=== PATIENT | male | born 1985 | race Caucasian/White ===

== ENCOUNTER 2022-10-15 07:12 | Observation (INO) | payer OTHER, SELFPAY ==
--- NOTE | 2022-10-12 13:14 | RAD_ITS ---
INDICATION: PREOP EXAMINATION/TECHNIQUE: X-RAY - XR Chest 2 Views COMPARISON: None. FINDINGS: LINES/DEVICES: None. LUNGS: No consolidation, edema or effusion. No pneumothorax. MEDIASTINUM AND CARDIOVASCULAR STRUCTURES: Cardiac silhouette not enlarged. Central airways and mediastinal contour are unremarkable. BONES AND SOFT TISSUES: Unremarkable. RAD/Chest PA and Lateral IMPRESSION: No acute cardiopulmonary disease. Electronically Signed: Jean Perkins MD at 13:25 EDT Reading Location ID and State: [id number] / Unknown , Service support ,
[2022-10-12 13:24] LABS: Absolute Lymphocyte Count 1.95 X10^3/uL (0.83-4.51); Absolute Neutrophil Count 5.2 X10^3/uL (2.0-7.7); Basophil# 0.04 X10^3/uL; Basophil% 0.5 % (0-1); Eosinophil# 0.15 X10^3/uL; Eosinophils% 1.9 % (0-5); Hematocrit 49.3 % (40-54); Hemoglobin 16.6 g/dL (13.0-16.5); Lymphocyte # 1.95 X10^3/ul (0.83-4.51); Mean Corp Hgb Conc 33.7 g/dL (32-36); Mean Corpuscular Hgb 32.2 pg (27.0-32.0); Mean Corpuscular Volume 95.7 fL (80-94); Mean Platelet Vol. 9.5 fl (6.2-12.0); Monocyte# 0.47 X10^3/uL; NRBC Flagged by Analyzer 0 % (0-5); Neutrophil # 5.17 X10^3/uL (2.7-7.7); Neutrophil % 66.3 % (47-70); Platelet Count 211 K/mm3 (150-450); RBC Distribution Width CV 13.3 % (11.6-14.6); RBC Distribution Width SD 47.4 fl (35.1-43.9); Red Blood Count 5.15 M/mm3 (4.6-6.2); White Blood Count 7.8 K/mm3 (4.4-11.0)
[2022-10-12 13:33] LABS: Prothrombin Time (Protime)PT. 13.4 SECONDS (11.7-14.9)
[2022-10-12 13:34] LABS: Partial Thromboplast Time 28.7 Seconds (24.1-36.2)
[2022-10-12 13:42] LABS: Anion Gap 4 (5-15); BUN 19 mg/dL (7-18); BUN/Creat Ratio 14.6 RATIO (10-20); Calcium,Total 9.1 mg/dL (8.5-10.1); Chloride 107 mmol/L (98-107); EST Glomerular Filtration Rate 65 mL/min (>60); Est Glom Filt Rate - Afr Amer 79 mL/min (>60); Glucose 93 mg/dL (74-106); Potassium 3.9 mmol/L (3.5-5.1); Sodium Level 138 mmol/L (136-145)
[2022-10-15] VITALS (16 sets, daily range): BP systolic 110–132; BP diastolic 69–82; PULSE 49–78; RESP 16–17; TEMP 36.2–36.8; O2SAT 97–100; BMI 27.4
[2022-10-15] MEDS: Lactated Ringers 1,000 ML 15 ML IV (06:47)
--- NOTE | 2022-10-15 07:09 | OP.PCM_ITS ---
Report of Operation Date of Procedure: 10/15/22 Description of Surgical Findings:: Preop diagnosis: 1. Lumbar stenosis, L5-S1 with spondylosis 2. Lumbar degenerative disc disease L5-S1 Postop diagnosis: 1. Lumbar stenosis, L5-S1 with spondylosis 2. Lumbar degenerative disc disease L5-S1 Procedures performed: 1. L5-S1 posterior lumbar interbody fusion 2. Insertion of intervertebral biomechanical device x1 3. Structural allograft for spinal fusion 4. L5 bilateral laminectomies, foraminotomies, facetectomies, decompression of bilateral nerve roots 5. S1 bilateral laminectomies, foraminotomies, facetectomies, decompression of bilateral nerve roots 6. L5-S1 posterolateral fusion 7. Pedicle screw fixation 8. Local autograft for spinal fusion 9. Neuro monitoring bilateral upper and bilateral lower extremities Statement of medical necessity: The patient is a 37-year-old male with intractable back and leg pain. Image studies confirm the above diagnoses. They have failed conservative treatments to include medications physical therapy and injections and have opted for operative intervention understanding the risk to include but not limited to infection, bleeding, damage to nerves arteries and veins, possibility of spinal fluid leak, nonunion, hardware failure, continued pain, need for further surgery, deep vein thrombosis, pulmonary embolism, heart attack, risk of stroke or . Description of the procedure: The patient was identified in the preoperative holding area. There they received preoperative IV antibiotics and was then transferred to the operative suite. Once in the operative suite after general endotracheal anesthesia was established, the patient was positioned prone on the Manuel operating table. All bony prominences were padded accordingly. The lumbar spine was prepped and draped in a standard fashion. Bear hugger's were not turned on until the drapes were placed and sealed with Ioban. A midline incision was made and taken down to the fascia. The fascia was divided and subperiosteal dissection was taken down to the level of the transverse processes and sacral ala of L5 and S1 bilaterally. Deep retractors were placed. A bone scalpel was used to make cuts in the lamina and then a series of rongeurs and Kerrisons were used removing the spinous process and lamina of L5. Then facetectomies of greater than 50% were performed as well as foraminotomies decompressing the bilateral nerve roots. Given the severity of the stenosis I needed to perform wide bilateral laminectomies and near complete facetectomies in order to decompress the neural elements. Disc created instability necessitating the fusion. I then proceeded with interbody fusion. The nerve roots and dura were identified and retracted medially. A knife was utilized to perform an annulotomy at L5-S1. Endplate elevators, curettes, and pituitaries were utilized to remove disc material. Endplates were prepared with a rasp. An appropriate sized intervertebral peek cage device measuring 10 mm was packed with structural allograft and impacted into position completing the posterior lumbar interbody fusion at the L5-S1 level. I then proceeded with pedicle screw fixation. Starting points were found at the junction of the superior articular process and transverse processes and sacral ala. A power bur was used for the starting points. Pedicle probes were placed bilaterally and then 6.5 x 55 mm screws were placed bilaterally at L5 and 6.5 x 45 mm screws were placed gregoria aterally at S1. The screws were tested with intraoperative neurophysiologic monitoring and tested within normal limits. Connector rods were applied and secured with set screws. I then proceeded with the posterolateral fusion. This was accomplished by decorticating the transverse processes bilaterally at L5 and the sacral ala bilaterally at S1. This decorticated bone was then bridged with local autograft from the decompression as well as morselized cancellous allograft completing the posterolateral fusion of the L5-S1 level. The incision was thoroughly irrigated. Tisseel was placed over the dura as a hemostatic agent. A deep drain was placed. The fascia was closed with #1 Vicryl, subcutaneous with 2-0 Vicryl and skin with 2-0 nylon. A sterile dressing was applied with 4 x 4's ABD and tape. Sponge instrument and needle counts were correct at the end of the case. Neurophysiologic monitoring was maintained at baseline throughout the duration of the case. The patient was extubated and taken to the PACU without incident Surgeon: Hubert Miramontes Type of Anesthesia: General Drains: Hemovac Estimated Blood Loss (mL): 500 cc Fluids Replaced: 2700 cc Grafts/Implants Used: Unified spine Complications None Admit VTE Documentation VTE Present on Admission: No
--- NOTE | 2022-10-15 07:09 | PCM.PN.ORT ---
Subjective Subjective Seen and examined postop. The patient is resting comfortably. His pain is controlled. Patient is complaining of some burning in the left lower extremity below the knee. No other numbness tingling or weakness Objective Data Objective Data Vital Signs: Vital Signs Temp Pulse Resp BP Pulse Ox O2 Del Method 97.2 F L 53 L 16 118/79 100 Room Air 10/15/22 06:41 10/15/22 06:41 10/15/22 06:41 10/15/22 06:41 10/15/22 06:41 10/15/22 06:41 Oxygen Delivery Method Room Air Weight: 207 lb 14.334 oz Body Mass Index (BMI) 27.4 Lab / Micro Data 10/12/22 13:02 10/12/22 13:02 Physical Exam Const alert, oriented x3 and no apparent distress General Appearance: cooperative, comfortable and well kempt HEENT normocephalic and head/scalp atraumatic Eyes EOMs intact bilaterally and conjunctivae normal Neck full ROM General: normal visual inspection Chest inspection of chest normal and palpation of chest normal Resp normal respiratory effort and normal air movement Cardio regular rate, regular rhythm and peripheral pulses 2+ throughout GI soft to palpation, non-tender and non-distended Back/Spine Back/Spine Narrative: Dressing clean dry and intact. Drain in place and functioning with small amount of serosanguineous fluid in Cervical Spine: cervical ROM normal Thoracic Spine / Upper Back: normal to inspection Lumbar Spine / Lower Back: normal to inspection Extremity normal to inspection, full ROM, normal capillary refill, no clubbing, cyanosis or edema and no calf tenderness Skin no rashes or lesions noted General Skin Exam: no breakdown Neuro oriented x3, CN's II-XII intact bilaterally, moves all extremities, no focal motor deficits, no sensory deficits noted and deep tendon reflexes 2+ bilaterally Motor Exam: strength 5/5 throughout and muscle tone normal throughout Assessment & Plan Assessment/Plan (1) Lumbar stenosis: PLAN: Okay to admit to floor See orders Discharge planning, likely home tomorrow
--- NOTE | 2022-10-15 07:09 | PCM.DC.SUM ---
Providers Date of Admission: 10/15/22 Primary Care Physician: MAKSIM Cooper Reason For Visit: 360 POST LUM INTERBODY FUSION Medications at Discharge Home Medications hydrocodone-acetaminophen 5-325mg 5mg-325mg 1 tab PO Q6H 7 days #28 tabs 10/15/22 Hospital Course Operations - (L5-S1 posterior lumbar interbody fusion, decompression, posterior spinal fusion with instrumentation, use of allograft) Summary of Care Provided Minutes Spent on Discharge: 15 Hospital Course: The patient is a 37-year-old male who underwent L5-S1 fusion on 10/15/2022. He was subsequently admitted. The hospitalist was consulted for medical management. The patient progressed well. His pain was controlled and he was mobilizing well. His drain was pulled on postoperative day 1. No significant medical issues were reported. He was subsequently discharged home on 10/16/2022 to follow-up with Dr. Miramontes in 3 weeks Physical Exam Const alert, oriented x3 and no apparent distress General Appearance: cooperative, comfortable and well kempt HEENT normocephalic and head/scalp atraumatic Head and Scalp: normal to inspection Eyes EOMs intact bilaterally and conjunctivae normal Neck full ROM General: normal visual inspection Chest inspection of chest normal and palpation of chest normal Resp normal respiratory effort and normal air movement Effort and Inspection: able to speak in complete sentences Cardio regular rate and peripheral pulses 2+ throughout GI soft to palpation, non-tender and non-distended Back/Spine Back/Spine Narrative: Dressing clean dry and intact. Incision well approximated with interrupted sutures in place. Drain pulled Cervical Spine: cervical ROM normal Thoracic Spine / Upper Back: normal to inspection Lumbar Spine / Lower Back: normal to inspection Extremity normal to inspection, full ROM, normal capillary refill, no clubbing, cyanosis or edema and no calf tenderness Skin no rashes or lesions noted General Skin Exam: no breakdown Neuro oriented x3, CN's II-XII intact bilaterally, moves all extremities, no focal motor deficits and deep tendon reflexes 2+ bilaterally Neuro Narrative: Patient describes mild decrease sensation in the left foot globally. Otherwise sensation intact grossly Motor Exam: strength 5/5 throughout and muscle tone normal throughout Weight / BMI Weight Weight: 207 lb 14.334 oz Body Mass Index (BMI) 27.4 ABG / Lab / Microbiology Data 10/12/22 13:02 10/12/22 13:02 D/C Instructions Discharge Diet: No restrictions Weight Bearing Status: Weight bearing as tolerated Additional Activity Instructions: No repetitive bending twisting or lifting greater than 5 pounds. Wear back brace at all times Call your doctor if your incision/area has: Continuous Slow Oozing, Sudden Increased Bleeding, Increased Pain/ Swelling, Increased Redness, Foul Smelling Discharge and Swelling at the incision site Call your doctor if you observe: Fever of 101 or Higher, Coldness, Increased Pain, Numbness or Tingling, Change in Color, Inability to urinate, Inability to have a bowel movement, Using more than 1 pad per hour, Shortness of breath, Dizziness, Fainting spells, Swelling in the ankles, Chest pain, Prolonged hiccupping, Increased palpitations (irregular heartbeat), Calf discomfort and Uncontrolled pain Cleanse incision/area with: Do not get Incision Wet and Keep Dressing Clean & Dry Additional Dressing/Incision Instructions: Change dressing daily with iodine gauze and tape. Use waterproof dressing for shower Please Follow Up With: Hubert Miramontes DO When: 3 weeks Meaningful Use Info Meaningful Use Diagnoses (Choose all that apply): None applicable Discharge Plan Admission Admit Date/Time: 10/15/22 07:12 Attending Provider: Hubert Miramontes Primary Care Provider: Madeline Saravia Consulting Providers: Quita Mitchell; Dony Owens; Jaycee Winchester; Jaycee Valentin; Shea Aguilar; June Lazo; Claus Monteiro; Narciso Parks; Edwar De La O; Mylene Haque; Gomez Walters; Arturo Cherry; Conner Tolbert; No Barney; Bandar Odom; Adali Calvillo; Marquis Culver; Nawaf Coronado; Gaob Vazquez; Dannie Pedro; Marbella Humphrey NP; Rafael Aceves; Isa Kraus Instructions Additional Instructions / Restrictions: 1. During your procedure, you received sedation through your IV. Please follow these instructions for the next 24 hours: Do not drive a motor vehicle, do not drink any alcoholic beverages, and do not sign any legal documents or make personal or business decisions. A responsible adult should stay with you at least 6 hours after the procedure. 2. Keep your surgical site/incision clean and the dressing dry and intact. You may use an ice pack at the surgical site to reduce any swelling or discomfort. 3. Monitor the incision site for any signs or symptoms of infection. Watch for redness, excessive swelling or drainage, or continued pain at the incision site after 3 days. Contact your physician immediately for a fever, chills or a temperature of 101.5? F or greater. 4. Take your medication exactly as prescribed by your physician. Do not attempt to wean yourself off any of your medications even though your pain is improving. This process needs to be carefully monitored by your doctor. Take any antibiotics prescribed exactly as directed and until they are gone. 5. Avoid stretching, bending, pulling, twisting or any sudden movements. Do not bend or twist at the waist. Wear back brace at all times 6. No lifting greater than 5 pounds. 7. Do not operate a motor vehicle, equipment or a power tool while taking pain medication 8. Do not have any manipulation done by a chiropractor or any other physician without first consulting with the surgeon 9. Please contact our office if you are even scheduled for a CT scan or an MRI. 10. Please call us if you have any questions, problems or concerns. Discharge Orders/Prescriptions Prescriptions: New hydrocodone-acetaminophen 5-325 mg tablet 1 tab PO Q6H 7 Days Qty: 28 0RF Discontinued naproxen sodium [Aleve] 220 mg capsule 220 mg PO BID PRN (Reason: pain) Other Ambulatory Orders: 12 Lead EKG (Routine) Timeframe: 20221012 Facility: [facility] - Location: Cardiovascular Services Ordered By: Dr. Hubert Miramontes Referrals / Follow Up: Hubert Miramontes DO [Med Staff - Active Staff] - Oliver Velazquez MD [Non-Staff] - Disposition Disposition (needs filled in before D/C Order can be placed): Home, Self Care
--- NOTE | 2022-10-15 07:35 | RAD_ITS ---
STUDY: X-RAY - LUMBAR SPINE REASON FOR EXAM: Male, 37 years old. Intraoperative digital documentation views. TECHNIQUE: 5 intraoperative digital documentation views of the lumbar spine were obtained. COMPARISON: None FINDINGS: 5 intraoperative digital documentation views show posterior fusion with intervertebral disc prosthesis at L5-S1. RAD/Spine 1 View Any Level IMPRESSION: Intraoperative digital documentation views. Electronically Signed: Tyron Figueroa MD at 15:54 EDT ,
[2022-10-15] MEDS: Cefazolin 2 GM in 0.9% Normal Saline 100 ML IV (07:45)
[2022-10-15] MEDS: Heparin 10,000 UNITS/10 ML Vial 10000 UNITS (08:32)
[2022-10-15] MEDS: Bupivacaine 0.25% 30 ML Vial (11:56)
--- NOTE | 2022-10-15 14:39 | SUR.PHASEI ---
Pt c/o feeling like lt foot is on fire intense burning, pedal pulses +2 foot is warm pink cap refill brisk <[address] Miramontes to inform and new order received to give 100mg Gabapentin TID start now and call him with report of effects once given. Pt made aware of New Order, called pharmacy to have med sent to PACU for administration.
[2022-10-15] MEDS: Gabapentin 100 MG Capsule PO (14:45)
[2022-10-15] MEDS: Lactated Ringers 1,000 ML 100 ML IV (14:45)
[2022-10-15] MEDS: Acetaminophen 500 MG Tablet 1000 MG PO ×2 (16:12→22:49)
[2022-10-15] MEDS: Cefazolin 1 GM/50 ML BAG IV ×2 (16:12→22:50)
--- NOTE | 2022-10-15 17:22 | PCM.CONS.GEN ---
Assessment & Plan Assessment/Plan (1) Lumbar stenosis: PLAN: Plan Assessment and plan 1. Lumbar stenosis status post a laminectomy on lumbar fusion. Postoperative pain management and DVT prophylaxis per primary team. No acute or chronic medical issues. Hospital medicine service will see again tomorrow and if stable will sign off. HPI Consult Data Date of Consult: 10/15/22 HPI Narrative HPI Narrative: MANUEL CHAMPAGNE, is a 37 M with degenerative joint disease of the lumbosacral spine with canal stenosis and who today underwent laminectomy and L5-S1 fusion. Hospital medicine consulted for postoperative medical management. Patient denies any chronic medical illnesses. Denies any chest pain or shortness of breath at this time. Denies any nausea vomiting. Pain is well controlled. [facility] Medical History Alcohol use Back pain Chewing tobacco nicotine dependence History of pain when walking History of steroid therapy Home Medications hydrocodone-acetaminophen 5-325mg 5mg-325mg 1 tab PO Q6H 7 days #28 tabs 10/15/22 [Rx Last Taken Unknown] Allergy/AdvReac Type Severity Reaction Status Date / Time No Known Allergies Allergy Verified 10/15/22 06:40 Surgical History Hx of microdiscectomy Social History Smoking Status: Current every day smoker tobacco type: smokeless tobacco ROS ROS Narrative Denies any chest pain or shortness of breath. All other systems reviewed and essentially negative or as above in the body of the history. Physical Exam Narrative General exam. Young man, not in any overt distress, well built. HEENT. Oral mucosa moist, no pallor or jaundice Neck. Neck is supple Lungs. Clear to auscultation Heart. First and second heart sounds heard and no murmurs Abdomen. Moves with respiration Extremities. No pedal edema MEAT CARVER. Conscious alert and oriented x3. Medical Records Data Attestation: I reviewed the patient's medical records Lab / Micro Data Attestation: I reviewed the patient's lab results. 10/12/22 13:02 10/12/22 13:02 Radiology Impression Spine X-Ray 10/15/22 07:35 IMPRESSION: Intraoperative digital documentation views. Electronically Signed: Tyron Figueroa MD at 15:54 EDT , Charges/Coding Visit Charges Office Visits / Consults: [id number] IP Consult L3
[2022-10-15] MEDS: Ensure Surgery 237 ML LIQUID PO (18:07)
[2022-10-15] MEDS: oxyCODONE 5 MG Tablet PO (18:19)
[2022-10-16] MEDS: Acetaminophen 500 MG Tablet 1000 MG PO (05:47)
[2022-10-16 08:00] VITALS: BP 119/61; PULSE 63; RESP 16; TEMP 36.8; O2SAT 100
[2022-10-16] MEDS: Ensure Surgery 237 ML LIQUID PO (08:14)
[2022-10-16] MEDS: Gabapentin 100 MG Capsule PO (08:14)
--- NOTE | 2022-10-16 09:40 | PHA.DC_ITS ---
Pharmacy [facility] Service has performed discharge medication reconciliation and counseling for this patient. 1. NORCO 5/325MG 1T PO Q6H The patient's discharge medication list was reviewed for discrepancies and discrepancies were resolved. The patient was counseled on the following discharge medications and changes in medications for homegoing were reviewed. The Reason for Use, instructions for use, and potential side effects were reviewed for all new medications. The patient's questions regarding all of their medications were answered. The patient was able to verbally demonstrate an understanding of their discharge medications. Patient counseled by pharmacy picking [employer]. Medications at Discharge Home Medications hydrocodone-acetaminophen 5-325mg 5mg-325mg 1 tab PO Q6H 7 days #28 tabs 10/15/22
--- NOTE | 2022-10-16 09:48 | CASEMGMT ---
Addendum entered by Norma Saravia 10/16/22 10:12: Received rx for FWW. Sent referral to [employer] via [facility]. Provided pt with walker and pt signed consignment form, uploaded to [employer] as well. Pt denies any further homegoing needs. Original Note: IGNACIO LOPEZ Assessment: Face to Face with pt for initial transition planning/care coordination assessment. RN JESSICA introduced self and role at [facility], pt voices understanding and consents to assessment. Pt is A/O x4 and answers all questions appropriately at this time. Pt sitting up in bed in no distress. Pt was seen walking halls with FWW with therapy. Care providers, pharmacy, and demographics verified/updated. Admitting Dx: 360 post lumbar interbody fusion PCP:MAKSIM Cooper Specialists:niru Miramontes Pharmacy: [facility] Insurance: [facility] Prescription Benefit: yes LNOK: Nancy Sin, Living Arrangements: Pt lives with and 3 children in a two story home with 1 step to enter with a rail. Pt reports he is typically I in ADL's and denies concerns at home. Transportation: Pt drives self and denies concerns with transportation. Pt will transport pt until he can drive again. DME/HHC/SNF: Pt denies having any DME in the home, previous HHC or SNF stays. Pt states no concerns with going home at time of dc. Pt is in need of FWW. Provided pt with a verbal local in network list of DME companies, pt chose [employer]. Pt states no further concerns/needs. CM to follow. Advised pt to ask CM if any further question/concerns/needs arise, voices understanding. Pt Goal: Home Plan: Home
--- NOTE | 2022-10-16 10:39 | PCM.PN.HOSP ---
Reason for Visit Reason for Visit: Diagnoses Spinal stenosis, lumbar region without neurogenic claudication (10/15/22) Encounter for other preprocedural examination (10/15/22) Subjective Subjective Doing well this a.m., was up with therapy, does have some numbness in his left leg and is discussed this with his surgeon per patient. No other complaints today Objective Data Objective Data Vital Signs: Vital Signs Temp Pulse Resp BP Pulse Ox O2 Del Method O2 Flow Rate 98.3 F 63 16 119/61 100 Room Air 6 10/16/22 08:00 10/16/22 08:00 10/16/22 08:00 10/16/22 08:00 10/16/22 08:00 10/16/22 08:36 10/15/22 13:00 Oxygen Flow Rate (L/min) 6 Oxygen Delivery Method Room Air Weight: 94.3 kg Body Mass Index (BMI) 27.4 Intake & Output: Intake and Output for Last 24 Hours 10/14/22 10/15/22 10/16/22 23:59 23:59 23:59 Intake Total 1658.34 / 1658.34 631.5 / 631.5 Output Total 5040 / 5040 75 / 75 Balance -3381.66 / -3381.66 556.5 / 556.5 Lab / Micro Data 10/12/22 13:02 10/12/22 13:02 Radiography Diagnostic Testing: Radiology Impression Spine X-Ray 10/15/22 07:35 IMPRESSION: Intraoperative digital documentation views. Electronically Signed: Tyron Figueroa MD at 15:54 EDT , Physical Exam Narrative General: Alert, oriented, no apparent distress HEENT: Atraumatic, normocephalic Eyes: extraocular movements grossly intact Neck: Supple Respiratory: normal respiratory effort Cardiovascular: no edema appreciated GI: nondistended Extremities: Moving all extremities Neuro: No overt focal neurological deficits Psych: Cooperative Assessment & Plan Assessment/Plan (1) Lumbar stenosis: PLAN: Plan 1. Lumbar stenosis status post a laminectomy on lumbar fusion -Postoperative pain management and DVT prophylaxis per primary team. No acute or chronic medical issues -10/16: Patient doing well this a.m., he will go home with walker. Denies any complaints. Patient stable for discharge from medical standpoint Charges/Coding Visit Charges Inpatient E&M: 83723 Subs Hosp L1
== END 2022-10-16 12:07 | disposition home or self-care (01) ==
LOC: SDC 14:38 → MS3 14:38
PROVIDERS: Admitting Provider Orthopaedic Surgery; PCP Physician Assistant; Referring Provider Orthopaedic Surgery; Visit Provider Orthopaedic Surgery
PROC: 0SG00AJ Fusion of Lumbar Vertebral Joint with Interbody Fusion Device, Posterior Approach, Anterior Column, Open Approach (ICD-10-PCS; CPT 22630; principal; 2022-10-15 07:00)
DX: M48.061 Spinal stenosis, lumbar region without neurogenic claudication (principal); M51.37 Other intervertebral disc degeneration, lumbosacral region; F17.220 Nicotine dependence, chewing tobacco, uncomplicated; M96.1 Postlaminectomy syndrome, not elsewhere classified; M54.16 Radiculopathy, lumbar region; M43.07 Spondylolysis, lumbosacral region; M51.36 Other intervertebral disc degeneration, lumbar region
CPT/HCPCS: 22630; 20931; 63052; 63053; 20936; 22853; 00670; 36415; 71046; 72020; 76000; 80048; 85025; 85610; 85730; 93005; 94668; 96361; 96365; 96366; 97162; 97530; 99221; C1713; J7120; G0378